=== PATIENT | male | born 1980 | race Caucasian/White ===

== ENCOUNTER → 2018-11-22 | Outpatient (CLI) | payer MEDICAID | LOC: WOUNDCARE 13:07 | PROVIDERS: ATTEND Surgery | DX: L97.311 Non-pressure chronic ulcer of right ankle limited to breakdown of skin (principal); G64 Other disorders of peripheral nervous system; T25.211A Burn of second degree of right ankle, initial encounter; X58.XXXA Exposure to other specified factors, initial encounter | CPT/HCPCS: 16020; 87070; 87205 ==

== ENCOUNTER → 2018-11-29 | Outpatient (CLI) | payer MEDICAID | LOC: WOUNDCARE 12:32 | PROVIDERS: ATTEND Surgery | DX: L97.311 Non-pressure chronic ulcer of right ankle limited to breakdown of skin (principal); G64 Other disorders of peripheral nervous system; T25.211A Burn of second degree of right ankle, initial encounter; X58.XXXA Exposure to other specified factors, initial encounter | CPT/HCPCS: 16020 ==